=== PATIENT | female | born 1940 | race Caucasian/White ===

== ENCOUNTER 2024-03-21 15:38 | Emergency (ER) | payer MEDICARE ==
[2024-03-21] MEDS: Tetracaine HCl/PF 0.5% 4 ML Bottle EYELF ONE (16:12)
== END 2024-03-21 16:19 | disposition home or self-care (01) ==
LOC: LB.ED 15:38
DX: H53.8 Other visual disturbances (principal); E03.9 Hypothyroidism, unspecified; Z79.899 Other long term (current) drug therapy
CPT/HCPCS: 99283